=== PATIENT | female | born 1990 | race Caucasian/White ===

== ENCOUNTER 2018-04-13 14:51 | Emergency (ER) | payer OTHER ==
[2018-04-13 14:54] VITALS: BP 122/80; PULSE 89; TEMP 98.6; BMI 31.6
--- NOTE | 2018-04-13 15:09 | PDOC ---
History of Present Illness - General Chief Complaint: Ear Problem Stated Complaint: EAR PROBLEM Time Seen by Provider: 04/13/18 14:59 - History of Present Illness Initial Comments: 27-year-old female without comorbidities presents for evaluation of right ear pain 3 days without associated symptoms. She does have mild jaw pain. 04/13/18 15:06 Past History - Past Medical History Allergies/Adverse Reactions: Allergies Allergy/AdvReac Type Severity Reaction Status Date / Time No Known Allergies Allergy Verified 04/13/18 14:51 Home Medications: Ambulatory Orders No Home Medications 0 dose .ROUTE UTDICT 05/11/13 Neomycin/Polymyxn/Hc [Cortisporin Otic Suspenstion -] 5 drop OD Q4HWA #1 bottle 04/13/18 COPD: No - Immunization History Immunization Up to Date: Yes - Suicide/Smoking/Psychosocial Hx Smoking Status: No Smoking History: Never smoked Number of Cigarettes Smoked Daily: 0 Review of Systems - Review of Systems HEENTM: Yes: See HPI, Ear Pain All Other Systems: Reviewed and Negative *Physical Exam - Vital Signs Last Vital Signs Temp Pulse Resp BP Pulse Ox 98.6 F 89 18 122/80 98 04/13/18 14:52 04/13/18 14:52 04/13/18 14:52 04/13/18 14:52 04/13/18 14:52 - Physical Exam Comments: HEAD: NC/AT EYES: Conjuntiva clear Ears: Left ear canal and tympanic membrane are normal, right ear canal is erythemic without exudative discharge tympanic membrane is mildly erythemic no retraction NOSE: No d/c THROAT: Moist mucous membrances, oral pharanx clear, uvula midline NECK: Supple without adenopathy CARDIAC: S1 S2 LUNGS: CTA Full and Equal breath sounds ABDOMEN: Soft NT ND MS: Full ROM in all joints without edema NEUROLOGIC: No gross sensory or motor deficits, NVID SKIN: Normal color and temperature no lesions or rashes 04/13/18 15:06 Medical Decision Making - Medical Decision Making Otitis externa Corticosporin hCG drops were prescribed. I have advised her to stop breast-feeding while on the drops. She will follow-up with ENT and ENT will advise on the clearance for breast-feeding. 04/13/18 15:07 *DC/Admit/Observation/Transfer Diagnosis at time of Disposition: Otitis externa - Discharge Dispostion Disposition: HOME Condition at time of disposition: Stable Decision to Admit order: No - Referrals Referrals: John Pike MD [Staff Physician] - - Patient Instructions Printed Discharge Instructions: Otitis Externa, DI for Otitis Externa Additional Instructions: Please take Tylenol for pain as directed. Use the drops as prescribed. Do not breast-feed while on the drops. In order to maintain your milk supply you may pump and dump the milk and do not treated to the baby. Do not continue to breast -feed or resume breast-feeding until you are cleared to do so by the ear nose and throat doctor. You should follow-up with ear nose and throat doctor in one to 2 days for further evaluation and treatment options. She will concerned about wisdom teeth please follow-up with your dentist. Return to the emergency room should symptoms worsen or go unresolved. - Post Discharge Activity
== END 2018-04-13 15:24 | disposition home or self-care (01) ==
LOC: JERFT 14:51
DX: H60.501 Unspecified acute noninfective otitis externa, right ear (principal)
CPT/HCPCS: 99281-25

== ENCOUNTER 2018-05-10 02:50 | Emergency (ER) | payer OTHER ==
[2018-05-10 03:02] VITALS: BP 120/74; PULSE 77; TEMP 98.5; BMI 19.8
--- NOTE | 2018-05-10 03:38 | PDOC ---
History of Present Illness - General Stated Complaint: DIFFICULTY BREATHING Time Seen by Provider: 05/10/18 03:18 History Source: Patient Exam Limitations: No Limitations - History of Present Illness Initial Comments: 05/10/18 03:26 HISTORY OF PRESENT ILLNESS: This is a 27-year-old woman who denies medical history presents emergency Department with dry productive cough and rhinorrhea for 4 days. Patient states she was expressing brief episodes of shortness of breath when she states is accompanied by throat pain. I present patient is neither shortness of breath nor throat pain. Patient has taken her child's albuterol MDI with minimal relief of symptoms. No recent travel or sick contacts. PAST MEDICAL HISTORY: Denies past medical history SURGICAL HISTORY: Denies ALLERGIES: No known drug allergies REVIEW OF SYSTEMS General/Constitutional: Denies fever or chills. Denies weakness, weight change. HEENT: Denies change in vision. Denies ear pain or discharge. +sore throat. Cardiovascular: Denies chest pain. Reports intermittent shortness of breath. Respiratory: Dry productive cough. Denies wheezing or hemoptysis. Gastrointestinal: Denies nausea, vomiting, diarrhea or constipation. Denies rectal bleeding. Genitourinary: Denies dysuria, frequency, or change in urination. +stress incontinence. Musculoskeletal: Denies joint or muscle swelling or pain. Denies neck or back pain. Skin and breasts: Denies rash or easy bruising. Neurologic: Denies headache, vertigo, loss of consciousness, or loss of sensation. Psychiatric: Denies depression or anxiety. Endocrine: Denies increased thirst. Denies abnormal weight change. Hematologic/Lymphatic: Denies anemia, easy bleeding, or history of blood clots. Allergic/Immunologic: Denies hives or skin allergy. Denies latex allergy. PHYSICAL EXAM General Appearance: Well-appearing, appropriately dressed. No apparent distress , no intoxication. HEENT: EOMI, PERRLA, normal ENT inspection, normal voice, TMs normal, pharynx normal. No conjunctival pallor. No photophobia, scleral icterus. Neck: Supple. Trachea midline. No tenderness, rigidity, carotid bruit, stridor , lymphadenopathy, or thyromegaly. Respiratory/Chest: Lungs CTAB. No shortness of breath, chest tenderness, respiratory distress, accessory muscle use. No crackles, rales, rhonchi, stridor , wheezing, dullness Cardiovascular: RRR. S1, S2. No JVD, murmur, bradycardia, tachycardia. Vascular Pulses: Dorsalis-Pedis (R): 2+, Dorsalis-Pedis (L): 2+ Gastrointestinal/Abdominal: Normal bowel sounds. Abdomen soft, non-distended. No tenderness or rebound tenderness. No organomegaly, pulsatile mass, guarding, hernia, hepatomegaly, splenomegaly. Lymphatic: No adenopathy, tenderness. Musculoskeletal/Extremities: Normal inspection. FROM of all extremities, normal capillary refill. Pelvis Stable. No CVA tenderness. No tenderness to extremities, pedal edema, swelling, erythema or deformity. Integumentary: Appropriate color, dry, warm. No cyanosis, erythema, jaundice or rash Neurologic: drywall foreman II-XII intact. Fully oriented, alert. Appropriate mood/affect. Motor strength 5/5. No appreciable EOM palsy, facial droop or sensory deficit. Past History - Past Medical History Allergies/Adverse Reactions: Allergies Allergy/AdvReac Type Severity Reaction Status Date / Time No Known Allergies Allergy Verified 05/10/18 03:00 Home Medications: Ambulatory Orders No Home Medications 0 dose .ROUTE UTDICT 05/11/13 Benzonatate [Tessalon Pearls -] 200 mg PO TID #42 cap 05/10/18 COPD: No - Immunization History Immunization Up to Date: Yes - Suicide/Smoking/Psychosocial Hx Smoking Status: No Smoking History: Never smoked Have you smoked in the past 12 months: No Number of Cigarettes Smoked Daily: 0 Information on smoking cessation initiated: No Hx Alcohol Use: No Drug/Substance Use Hx: No *Physical Exam - Vital Signs Last Vital Signs Temp Pulse Resp BP Pulse Ox 98.5 F 77 18 120/74 98 05/10/18 03:00 05/10/18 03:00 05/10/18 03:00 05/10/18 03:00 05/10/18 03:00 Medical Decision Making - Medical Decision Making 05/10/18 03:38 A/P: 27-year-old woman with 4 days of upper respiratory symptoms Cobblestoning in the posterior pharynx Inflamed nasal turbinates Clear nasal rhinorrhea present No stridor Speaking full sentences Lungs clear to auscultation bilaterally Urine, reassess 05/10/18 05:19 Patient feels better after receiving Decadron. Patient still complains of cough. I will give the patient one dose of codeine 30 mg orally here. I will discharge the patient home with prescription for Tessalon Perles and to follow- up with her primary doctor for any concerns. I discussed the physical exam findings, ancillary test results and final diagnoses with the patient. I answered all of the patient's questions. The patient was satisfied with the care received and felt comfortable with the discharge plan and treatment plan. The patient will call their primary care physician within 24 hours to arrange follow-up and will return to the Emergency Department with any new, persistent or worsening symptoms. *DC/Admit/Observation/Transfer Diagnosis at time of Disposition: URI (upper respiratory infection) Qualifiers: URI type: unspecified viral URI Qualified Code(s): J06.9 - Acute upper respiratory infection, unspecified - Discharge Dispostion Disposition: HOME Condition at time of disposition: Stable Decision to Admit order: No - Prescriptions Prescriptions: Benzonatate [Tessalon Pearls -] 200 mg PO TID #42 cap - Referrals - Patient Instructions Printed Discharge Instructions: DI for Viral Upper Respiratory Infection -- Adult Additional Instructions: Rest, drink lots of fluids: Teas, water, soups, Pedialyte Saltwater gargles Steamy showers/seem to face break up mucus Avoid contact with others until fevers and cough resolved Lots of handwashing and good hygiene Continue [id number] medications for symptomatic relief Tessalon Perles 200mg 3 times a day as needed for cough Tylenol or Motrin for fever and pain Followup with private physician in one to 2 days as needed Return to emergency department for worsened symptoms, fevers, dehydration - Post Discharge Activity Forms/Work/School Notes: Back to Work
[2018-05-10 03:55] LABS: URINE APPEARANCE CLEAR; URINE BILIRUBIN NEGATIVE (<2.0 mg/dL); URINE COLOR COLORLESS; URINE GLUCOSE (UA) NEGATIVE (NEGATIVE); URINE KETONE NEGATIVE (NEGATIVE); URINE LEUK ESTERASE NEGATIVE (NEGATIVE); URINE NITRITE NEGATIVE (NEGATIVE); URINE PROTEIN NEGATIVE (NEGATIVE); URINE UROBILINOGEN NEGATIVE mg/dL (0.2-1.0)
[2018-05-10 03:56] LABS: HCG,QUALITATIVE URINE Negative
[2018-05-10] MEDS ORDERED: DEXAMETHASONE 4 MG TABLET (FP) PO ONE (04:30)
[2018-05-10] MEDS ORDERED: DEXAMETHASONE SOD PHOSPHATE 10 MG/1 ML VIAL ONE (04:37)
[2018-05-10] MEDS ORDERED: CODEINE SO4 30 MG TABLET PO ONE (05:18)
[2018-05-10] MEDS ORDERED: CODEINE SO4 30 MG TABLET ONE (05:22)
== END 2018-05-10 05:45 | disposition home or self-care (01) ==
LOC: JER 02:50
DX: J06.9 Acute upper respiratory infection, unspecified (principal)
CPT/HCPCS: 81003; 84703; 87086; 99281-25

== ENCOUNTER 2019-05-11 18:57 | Emergency (ER) | payer OTHER ==
[2019-05-11 19:06] VITALS: TEMP 98.6; BMI 34.6
[2019-05-11] MEDS ORDERED: ACETAMINOPHEN 325 MG TABLET (FP) PO ONE (19:49)
[2019-05-11] MEDS ORDERED: ACETAMINOPHEN 325 MG TABLET (FP) ONE (19:56)
--- NOTE | 2019-05-11 20:26 | PDOC ---
History of Present Illness - General Chief Complaint: Headache Stated Complaint: 13 WKS /HEADACHE Time Seen by Provider: 05/11/19 19:34 - History of Present Illness Initial Comments: 05/11/19 20:27 28 yo F no PMH, currently 13 weeks , presenting with headache for last day. Reports that it is 5/10, pressure, frontal, unalleviated by acetaminophen 500mg 4 hours and another 500mg 1 hour before ED arrival. Complains of nausea unchanged from the rest of her . Has been taking vitamins and going to all appointments. Specifically denies CP, SOB, vaginal bleeding, visual changes, photophobia, phonophobia, dizziness, constipation/diarrhea, fevers/chills. Past History - Past Medical History Allergies/Adverse Reactions: Allergies Allergy/AdvReac Type Severity Reaction Status Date / Time No Known Allergies Allergy Verified 05/10/18 03:00 Home Medications: Ambulatory Orders NK [No Known Home Medication] 05/11/19 COPD: No CHF: No DVT: No - Immunization History Immunization Up to Date: Yes - Psycho Social/Smoking Cessation Hx Smoking Status: No Smoking History: Never smoked Have you smoked in the past 12 months: No Number of Cigarettes Smoked Daily: 0 Hx Alcohol Use: No Drug/Substance Use Hx: No Substance Use Type: None Review of Systems - Review of Systems Constitutional: No: Chills, Diaphoresis, Fever HEENTM: No: Recent change in vision, Double Vision, Tinnitus, Hearing Loss, Throat Swelling, Difficulty Swallowing Respiratory: No: Cough, Shortness of Breath Cardiac (ROS): No: Chest Pain, Edema, Irregular Heart Rate, Lightheadedness, Palpitations, Chest Tightness ABD/GI: Yes: Nausea. No: Constipated, Diarrhea, Vomiting : No: Burning, Dysuria, Discharge, Frequency, Flank Pain Musculoskeletal: No: Back Pain, Muscle Pain Neurological: Yes: Headache (frontal, 5/10). No: Numbness, Tingling, Weakness *Physical Exam - Vital Signs Last Vital Signs Temp Pulse Resp BP Pulse Ox 98.6 F 70 19 119/76 100 05/11/19 19:02 05/11/19 19:02 05/11/19 19:02 05/11/19 19:02 05/11/19 19:02 - Physical Exam Comments: 05/11/19 20:32 Gen: well-developed, well-nourished, NAD Neuro: AAOX4, CN II-XII intact, FTN intact, EOMI, PERRLA, 5/5 strength, SILT HEENT: atraumatic, normocephalic Neck: trachea midline, supple CV: regular rate, regular rhythm, no murmurs, rubs, or gallops Pulm: CTA b/l, no wheezing Abd: soft, non-distended, non-tender MSK: full ROM, intact pulses Extr: no edema, no deformities Skin: warm, dry ED Treatment Course - Medications Given in the ED: ED Medications Discontinued Medications Generic Name Dose Route Start Last Admin Trade Name Bright PRN Reason Stop Dose Admin Acetaminophen 650 mg 05/11/19 19:49 05/11/19 20:01 Tylenol - PO 05/11/19 19:50 650 mg ONCE ONE Administration Medical Decision Making - Medical Decision Making 05/11/19 20:33 Concern for stress headache. Pressures normal and <20 weeks so low concern for preeclampsia. - acetaminophen 650mg - reassess 05/11/19 21:16 Patient reports that she has been eating a lot and was concerned that could be elevating her blood pressure. Also states that she missed her last OBGYN appointment so wanted to make sure her baby was okay. Will get TVUS. 05/11/19 21:49 FHR 150 bpm, CRL consistent with 13 wks, 6 days. Will dc patient home. Discharge - Discharge Information Problems reviewed: Yes Clinical Impression/Diagnosis: Headache - Follow up/Referral - Patient Discharge Instructions Patient Printed Discharge Instructions: DI for Headache Additional Instructions: You were seen with a headache. Your vital signs were normal, and your ultrasound did not show any concerning findings. Follow up with your primary care doctor and your OBGYN within one week. Return to the ED if you develop worsening symptoms. - Post Discharge Activity
--- NOTE | 2019-05-11 20:39 | PDOC ---
Documentation entered by Mariajose Murcia SCRIBE, acting as scribe for Corrine Valverde MD. Corrine Valverde MD: This documentation has been prepared by the kiannaibe, Mariajose Murcia SCRIBE, under my direction and personally reviewed by me in its entirety. I confirm that the documentation accurately reflects all work, treatment, procedures, and medical decision making performed by me. Attending Attestation - Resident Resident Name: Lluvia Chaparro - ED Attending Attestation I have performed the following: I have examined & evaluated the patient, The case was reviewed & discussed with the resident, I agree w/resident's findings & plan, Exceptions are as noted - HPI HPI: 05/11/19 20:36 28 yo female who is 13 weeks p/w a frontal headache that started earlier today. She took 500mg of tylenol this afternoon She denies nausea,vomiting.fever,chills,visual changes - Physicial Exam PE: 05/11/19 20:38 wnwd 28 yo female head ncat neck supple lungs cta b/l cvs [id number] abd nontender skin warm and dry no cva tenderness neuro axox3,ambulatory - Medical Decision Making 05/11/19 21:16 After further discussion it became clear that the patient was concerned that maybe she was having another preeclamptic episode. She was worried that she had been eating a lot and perhaps this is going to elevate her blood pressure. she was reassured that her blood pressure was in a normal range . 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
[2019-05-11] MEDS ORDERED: METOCLOPRAMIDE HCL 10 MG TABLET (FP) PO ONE ×2 (20:54→20:57)
[2019-05-11 22:07] VITALS: BP 124/74; PULSE 73
== END 2019-05-11 22:05 | disposition home or self-care (01) ==
LOC: JER 18:57
DX: O26.891 Other specified pregnancy related conditions, first trimester (principal); G44.209 Tension-type headache, unspecified, not intractable; Z3A.13 13 weeks gestation of pregnancy
CPT/HCPCS: 76801-TC; 99282-25

== ENCOUNTER 2020-04-21 11:27 | Emergency (ER) | payer OTHER ==
--- NOTE | 2020-04-21 11:48 | PDOC ---
Rapid Medical Evaluation Time Seen by Provider: 04/21/20 11:46 Medical Evaluation: Allergies Allergy/AdvReac Type Severity Reaction Status Date / Time No Known Allergies Allergy Verified 05/10/18 03:00 04/21/20 11:47 I performed a brief in-person evaluation of this patient. Pt is a 29 y/o with b/l ear pain x 4 days. No fevers. No PMHx. Pertinent physical exam findings: Hearing grossly normal, no respiratory distress I have ordered the following: none Patient to proceed to ED for further evaluation. Discharge Disposition - Diagnosis Acute pain of both ears - Referrals - Patient Instructions - Post Discharge Activity
[2020-04-21 11:50] VITALS: BP 115/76; PULSE 87; TEMP 97.9; BMI 32.4
[2020-04-21] MEDS ORDERED: IBUPROFEN 400 MG TABLET (FP) PO ONE ×2 (12:08→12:10)
--- NOTE | 2020-04-21 12:15 | PDOC ---
History of Present Illness - General Chief Complaint: Ear Problem Stated Complaint: THOMAS EAR INFECTION Time Seen by Provider: 04/21/20 11:46 History Source: Patient - History of Present Illness Timing/Duration: reports: other Past History - Medical History Allergies/Adverse Reactions: Allergies Allergy/AdvReac Type Severity Reaction Status Date / Time No Known Allergies Allergy Verified 04/21/20 11:50 Home Medications: Ambulatory Orders Ibuprofen [Motrin -] 600 mg PO QID #28 tablet 11/06/19 Ciprofloxacin HCl/Dexameth [Ciprodex Otic Suspension] 4 drop AU BID 7 Days #1 bottle 04/21/20 Ciprofloxacin [Cipro (Restricted To Id)] 500 mg PO Q12H #14 tablet 04/21/20 Ibuprofen [Motrin -] 800 mg PO Q6H #30 tablet 04/21/20 Asthma: No Cancer: No Cardiac Disorders: No COPD: No CHF: No DVT: No Diabetes: No HTN: No Seizures: No Thyroid Disease: No - Reproductive History Is Patient Now?: No - Immunization History Immunization Up to Date: Yes - Psycho-Social/Smoking History Smoking Status: No Smoking History: Never smoked Have you smoked in the past 12 months: No Number of Cigarettes Smoked Daily: 0 Information on smoking cessation initiated: No - Substance Abuse Hx (Audit-C & DAST Scrn) How often the patient has a drink containing alcohol: Never Score: In Men: 4 or > Positive; In Women: 3 or > Positive: 0 Screen Result (Pos requires Nsg. Audit-10AR): Negative In the last yr the pt used illegal drug/Rx for NonMed reason: No Score: Yes response is considered Positive: 0 Screen Result (Positive result requires Nsg. DAST-10): Negative Review of Systems - Review of Systems Constitutional: No: Chills, Fever HEENTM: Yes: Ear Pain. No: Throat Pain *Physical Exam - Vital Signs Last Vital Signs Temp Pulse Resp BP Pulse Ox 97.9 F 87 17 115/76 100 04/21/20 11:48 04/21/20 11:48 04/21/20 11:48 04/21/20 11:48 04/21/20 11:48 - Physical Exam General Appearance: Yes: Appropriately Dressed. No: Apparent Distress HEENT: positive: Normal Voice, Other (canal edema w/ purulent debris and sig ttp to canal b/l, TMs visualized and intact, no ttp over mastoid). negative: Tonsillar Exudate, Tonsillar Erythema Neck: positive: Supple. negative: Lymphadenopathy (R), Lymphadenopathy (L) Respiratory/Chest: negative: Respiratory Distress Integumentary: positive: Dry, Warm Neurologic: positive: Fully Oriented, Alert, Normal Mood/Affect Medical Decision Making - Medical Decision Making 04/21/20 12:13 29-year-old female, history of recurrent ear infections, here with severe pain to bilateral ear x6 days. No sore throat fever or chills. Currently breast- feeding. Patient well-appearing and stable with edema with purulent debris and significant tenderness to palpation of bilateral ear canals, no evidence of otitis media. Dose of Motrin given in ER. Dc with both topical and p.o. antibiotics given severity. Patient to follow-up with PMD to rule out diabetes given recurrent ear infections. Patient to refrain from breast-feeding while on meds as discussed Discharge - Discharge Information Problems reviewed: Yes Clinical Impression/Diagnosis: Otitis externa Qualifiers: Otitis externa type: unspecified type Chronicity: acute Laterality: bilateral Qualified Code(s): H60.503 - Unspecified acute noninfective otitis externa, bilateral Condition: Good Disposition: HOME - Additional Discharge Information Prescriptions: Ciprofloxacin [Cipro (Restricted To Id)] 500 mg PO Q12H #14 tablet Ciprofloxacin HCl/Dexameth [Ciprodex Otic Suspension] 4 drop AU BID 7 Days #1 bottle Ibuprofen [Motrin -] 800 mg PO Q6H #30 tablet - Follow up/Referral Referrals: Jamin Ron MD [Primary Care Provider] - - Patient Discharge Instructions Patient Printed Discharge Instructions: DI for Otitis Externa Additional Instructions: You are being treated for severe external ear infection to both ears with both topical and oral antibiotics. Take meds as directed Take Motrin as needed for pain If symptoms worsen return to the ED Otherwise you should follow-up with your PMD for further evaluation and to rule out diabetes given recurrent ear infection - Post Discharge Activity
== END 2020-04-21 12:16 | disposition home or self-care (01) ==
LOC: JERFT 11:27
DX: H60.503 Unspecified acute noninfective otitis externa, bilateral (principal)
CPT/HCPCS: 99283-25

== ENCOUNTER 2021-02-25 15:41 | Emergency (ER) | payer OTHER ==
[2021-02-25 15:54] VITALS: BP 125/80; PULSE 75; TEMP 98.3; BMI 31.6
[2021-02-25] MEDS ORDERED: LIDOCAINE 5% TOPICAL PATCH TP ONE (16:51)
[2021-02-25] MEDS ORDERED: ACETAMINOPHEN 325 MG TABLET (FP) PO ONE (16:51)
[2021-02-25 18:30] LABS: EPI CELLS 33 /uL (0-25.1); HCG,QUALITATIVE URINE Negative; HYALINE CASTS 0 /uL (0-3.1); PH,URINE 6.5 (5.0-8.0); URINE APPEARANCE CLEAR; URINE BACTERIA 1486 /uL (0-1359); URINE BILIRUBIN NEGATIVE (NEGATIVE); URINE COLOR YELLOW; URINE GLUCOSE (UA) NEGATIVE (NEGATIVE); URINE KETONE NEGATIVE (NEGATIVE); URINE LEUK ESTERASE TRACE (NEGATIVE); URINE NITRITE NEGATIVE (NEGATIVE); URINE PROTEIN NEGATIVE (NEGATIVE); URINE RBC 10 /uL (0-23.9); URINE WBC 68 /uL (0-25.8)
[2021-02-25] MEDS ORDERED: ACETAMINOPHEN 500 MG TABLET (FP) ONE (18:39)
[2021-02-25] MEDS ORDERED: LIDOCAINE 5% TOPICAL PATCH ONE (18:39)
== END 2021-02-25 19:09 | disposition home or self-care (01) ==
LOC: JERFT 15:41
DX: M54.6 Pain in thoracic spine (principal)
CPT/HCPCS: 81003; 84703; 87077; 87086; 99283-25